=== PATIENT | female | born 1975 | race Caucasian/White ===

== ENCOUNTER → 2018-06-03 09:10 | Day surgery (SDC) | payer OTHER ==
[~2018-06-03 09:10] MED LIST: Acetaminophen TAB* 325 MG ONE; Acetaminophen TAB* 325 MG PO PRN; Buffered Lidocaine 0.9% SYRIN* 5 ML/SYR SYRINGE INTRADERM ONE; Dexamethasone IV* 4 MG/ML 1 ML (4 MG) ONE; DiMENhydriNATE IV* 50 MG/ML VIAL IV PUSH PRN; DiMENhydriNATE IV* 50 MG/ML VIAL ONE; Famotidine IV* 10 MG/ML 2 ML (20 mg) IV ONE; Famotidine IV* 10 MG/ML 2 ML (20 mg) ONE; Ketorolac INJ* 30 MG/ML 1 ML VIAL ONE; Lactated Ringers 1000 ML Bag* 1,000 ML IV SCH; Lidocaine 2% PF * 5 ML VIAL ONE; Midazolam* 1 MG/ML 5 ML VIAL (5 MG) ONE; Naloxone* 0.4 MG/ML 1 ML VIAL IV PRN; Ondansetron INJ* 2 MG/ML VIAL ONE; Propofol* 10 MG/ML 20 ML BTL ONE; fentaNYL* 50 MCG/ML 2 ML VIAL (100 MCG VIAL) ONE
[2018-06-03 09:54] LABS: ABS Basophils 0 10^3/ul (0-0.2); ABS Eosinophils 0 10^3/ul (0-0.6); ABS Lymphocytes 1.3 10^3/ul (1.0-4.8); ABS Monocytes 0.5 10^3/ul (0-0.8); ABS Neutrophils 5.5 10^3/ul (1.5-7.7); ABS Nucleated RBC 0 10^3/ul; Eosinophil % 0.6 %; Hematocrit 43 % (35-47); Hemoglobin 14.2 g/dl (12.0-16.0); Lymphocyte % 17.5 %; Mean Corpuscular HGB Conc 33 g/dl (31-36); Mean Corpuscular Hemoglobin 31 pg (27-31); Mean Corpuscular Volume 95 fL (80-97); Mean Platelet Volume 9.6 fL (7.4-10.4); Nucleated Red Blood Cells % 0; Platelet Count 207 10^3/ul (150-450); Red Blood Count 4.53 10^6/ul (4.00-5.40); Red Cell Distribution Width 14 % (10.5-15); White Blood Count 7.3 10^3/ul (3.5-10.8)
[2018-06-03 12:36] VITALS: BP 118/71
--- NOTE | 2018-06-04 03:49 | OP ---
DATE OF OPERATION: 06/03/18 - [facility] DATE OF : 79 SURGEON: Diomedes Tran MD ANESTHESIA: General endotracheal tube. PRE-OP DIAGNOSIS: Menstruation, excessive. POST-OP DIAGNOSIS: Menstruation, excessive. OPERATIVE PROCEDURE: D and C, hysteroscopy, endometrial ablation. COMPLICATIONS: None. FINDINGS: On exam under anesthesia, the uterus was retroverted and sounded to 8 cm. On hysteroscopy, the cavity appeared normal. Both tubal ostia were visualized and appeared normal. There was thin endometrium. DESCRIPTION OF PROCEDURE: The patient identified, procedure identified as a D and C, hysteroscopy, endometrial ablation. The patient was taken to the operating room, prepped and draped in the usual fashion in dorsal lithotomy position under general anesthesia. Two single-tooth tenaculums were placed in the anterior lip of the cervix. Cervix was dilated up to a #8 Hegar dilator. At this time, the hysteroscope inserted, the above findings were noted and curette was inserted and sharp curettage performed until a gritty sensation was felt throughout the circumference. The NovaSure device was opened. The array was checked. The device was placed in the uterine cavity. Again, the sounding length was 8, the cervical length was approximately 3, making the cavity length 5, cavity width opened up to 4.3, with a power setting of 118. The CO2 perforation test was performed and the device passed. NovaSure device was enabled and NovaSure ablation took place for 1 minute 8 seconds. At the end of the procedure, all instruments removed from the vagina and the hysteroscope was reinserted into the uterine cavity and a good ablation was noted throughout. No perforations or concerns were noted at the time. All instruments were removed from the vagina and the patient returned to the recovery room in stable condition. [id number]/[facility] #: [id number] [facility]
== END | disposition home or self-care (01) ==
LOC: OR 09:10
PROVIDERS: ATTEND Obstetrics & Gynecology
DX: N92.0 Excessive and frequent menstruation with regular cycle (principal)
CPT/HCPCS: 36415; 81025; 84443; 85025; 86850; 86900; 86901; 88305; A9270-GY; J1100; J1240; J1885; J2250; J2405; J2704; J3010